=== PATIENT | female | born 1980 | race Caucasian/White ===

== ENCOUNTER 2018-09-12 21:39 | Inpatient (IN) | payer BC ==
[2018-09-12] MEDS: SOD CHLORIDE 0.9% 1,000 ML IV (22:39)
[2018-09-12] MEDS ORDERED: NACL 0.9% 3 ML SYG IV (23:00)
[2018-09-12] MEDS ORDERED: ONDANSETRON 4 MG INJ IV (23:00)
[2018-09-12] MEDS ORDERED: ACETAMINOPHEN 325 MG TAB PO (23:00)
[2018-09-12 23:26] LABS: WHITE BLOOD COUNT 1.1 10^3/ul (4.8-10.8)
[2018-09-12 23:26] LABS: ABNORMAL IP MESSAGE 1; HEMATOCRIT 20.4 % (37.0-47.0); MEAN CORPUSCULAR HEMOGLOBIN 30.1 pg (29.0-33.0); MEAN CORPUSCULAR HGB CONC 32.4 g/dl (32.0-37.0); MEAN CORPUSCULAR VOLUME 93.2 fl (82.0-101.0); RED BLOOD COUNT 2.19 10^6/ul (4.20-5.40); RED CELL DISTRIBUTION WIDTH 17.7 % (11.5-14.5)
[2018-09-12 23:28] LABS: POSITIVE DIFF @See below
[2018-09-12 23:31] LABS: ADD MAN DIFF? YES; HEMOGLOBIN 6.6 g/dl (12.0-16.0); PLATELET COUNT 11 10^3/UL (140-415)
[2018-09-12] MEDS: SOD CHLORIDE 0.9% 250 ML IV* (23:56)
[2018-09-13 00:06] LABS: ACANTHOCYTES 1+ (0-0); BURR CELLS 1+ (0-0); ECHINOCYTOSIS 1+ (0-0); OVALOCYTES 1+ (0-0); PLATELET ESTIMATE SIG DECREASED; TARGET CELLS 1+ (0-0)
[2018-09-13 00:56] LABS: ANISOCYTOSIS 2+ (0-0); BAND NEUTROPHILS % (M) 4 % (0-4); BASOPHILS % (M) 2 % (0-2); EOSINOPHILS % (M) 1 % (0-7); GIANT THROMBO% (M) 4 % (0-0); LYMPHOCYTES #M 0.2 10^3/ul (0.8-2.9); LYMPHOCYTES % (M) 21 % (15-51); POIKILOCYTOSIS 3+ (0-0); POLYCHROMASIA 3+ (0-0); REACTIVE LYMPHOCYTES% (M) 4 % (0-0); SEG NEUT #M 0.7 10^3/ul (1.6-7.5); SEGMENTED NEUTROPHILS (M) % 68 % (39-77); SMUDGE%M 134 % (0-0)
[2018-09-13] MEDS ORDERED: ONDANSETRON 4 MG INJ IV (03:00)
[2018-09-13] MEDS: LORAZEPAM 2 MG INJ IV ×4 (03:01→21:31)
[2018-09-13 03:07] LABS: ALANINE AMINOTRANSFERASE 49 IU/L (13-69); ALBUMIN 2.5 g/dl (3.3-4.9); ALBUMIN/GLOBULIN RATIO 0.71; ALKALINE PHOSPHATASE 111 IU/L (42-121); ANION GAP 7 (5-13); ASPARTATE AMINO TRANSFERASE 183 IU/L (15-46); BILIRUBIN,INDIRECT 2.7 mg/dl (0-1.1); BILIRUBIN,TOTAL 3.6 mg/dl (0.2-1.3); BLOOD UREA NITROGEN 7 mg/dl (7-20); CALCIUM 7.5 mg/dl (8.4-10.2); CARBON DIOXIDE 25 mmol/L (21-31); CHLORIDE 106 mmol/L (97-110); CREATININE 0.57 mg/dl (0.44-1.00); Estimated GFR > 60 mL/min (>60); GLUCOSE 64 mg/dl (70-220); POTASSIUM 3.3 mmol/L (3.5-5.1); SODIUM 138 mmol/L (135-144)
[2018-09-13 03:09] LABS: PROTIME 23.6 Sec (11.9-14.9); PT RATIO 1.8
[2018-09-13 03:10] LABS: PARTIAL THROMBOPLASTIN TIME 35.9 Sec (23.0-35.0)
[2018-09-13] MEDS: PROPRANOLOL 1 MG INJ IV (03:30)
[2018-09-13] MEDS: OCTREOTIDE 1 MG in DEXTROSE 5% 95 ML IV ×2 (03:30→19:00)
[2018-09-13] MEDS: PANTOPRAZOLE IV 80 MG in SOD CHLORIDE 0.9% 100 ML IV ×3 (03:31→19:00)
[2018-09-13 03:54] LABS: AMYLASE 39 U/L (11-123)
[2018-09-13 03:55] LABS: LIPASE < 10 U/L (23-300)
[2018-09-13 03:55] LABS: LACTATE DEHYDROGENASE 1039 IU/L (313-618)
[2018-09-13 03:56] LABS: ETHANOL < 10.0 mg/dl (0-0)
[2018-09-13] MEDS: CHLORDIAZEPOXIDE 25 MG CAP PO ×3 (04:43→21:30)
[2018-09-13] MEDS: D5W-0.45 NACL + KCL 20 MEQ 1,000 ML IV (04:44)
[2018-09-13] MEDS: PHYTONADIONE 10 MG in DEXTROSE 5% 50 ML IVPB (05:24)
[2018-09-13] MEDS ORDERED: predniSOLONE (3 MG/ML PO SYG) PO (09:00)
[2018-09-13 09:26] LABS: ABNORMAL IP MESSAGE 1; HEMATOCRIT 20.7 % (37.0-47.0); MEAN CORPUSCULAR HEMOGLOBIN 30.3 pg (29.0-33.0); MEAN CORPUSCULAR HGB CONC 32.4 g/dl (32.0-37.0); MEAN CORPUSCULAR VOLUME 93.7 fl (82.0-101.0); RED BLOOD COUNT 2.21 10^6/ul (4.20-5.40); RED CELL DISTRIBUTION WIDTH 17.8 % (11.5-14.5); RETICULOCYTE COUNT % 3.6 % (0.5-1.5); RETICULOCYTE RBC 2.21
[2018-09-13 09:26] LABS: WHITE BLOOD COUNT 0.6 10^3/ul (4.8-10.8)
[2018-09-13 09:40] LABS: INR 2.15; PROTIME 24.1 Sec (11.9-14.9); PT RATIO 1.9
[2018-09-13 09:41] LABS: PARTIAL THROMBOPLASTIN TIME 43.3 Sec (23.0-35.0)
[2018-09-13 09:42] LABS: ALANINE AMINOTRANSFERASE 50 IU/L (13-69); ALBUMIN 2.3 g/dl (3.3-4.9); ALBUMIN/GLOBULIN RATIO 0.63; ALKALINE PHOSPHATASE 104 IU/L (42-121); ANION GAP 8 (5-13); ASPARTATE AMINO TRANSFERASE 146 IU/L (15-46); BILIRUBIN,INDIRECT 2.6 mg/dl (0-1.1); BILIRUBIN,TOTAL 3.7 mg/dl (0.2-1.3); BLOOD UREA NITROGEN 7 mg/dl (7-20); CALCIUM 7.3 mg/dl (8.4-10.2); CARBON DIOXIDE 27 mmol/L (21-31); CHLORIDE 103 mmol/L (97-110); CHOLESTEROL 131 mg/dl (100-200); CREATININE 0.61 mg/dl (0.44-1.00); Estimated GFR > 60 mL/min (>60); GLUCOSE 80 mg/dl (70-220); HDL CHOLESTEROL 32 mg/dl (34-82); LDL CHOLESTEROL,CALCULATED 84 mg/dl; MAGNESIUM 1.4 mg/dl (1.7-2.5); POTASSIUM 3.3 mmol/L (3.5-5.1); SODIUM 138 mmol/L (135-144); TOTAL PROTEIN 5.9 g/dl (6.1-8.1); TRIGLYCERIDES 73 mg/dl (0-149)
[2018-09-13 09:43] LABS: HEMOGLOBIN A1C 5.4 % (0-5.9)
[2018-09-13 09:47] LABS: HEMOGLOBIN 6.7 g/dl (12.0-16.0); PLATELET COUNT 11 10^3/UL (140-415); POSITIVE DIFF @See below
[2018-09-13 09:48] LABS: ADD MAN DIFF? YES
[2018-09-13 10:11] LABS: WHITE BLOOD COUNT 0.7 10^3/ul (4.8-10.8)
[2018-09-13 10:11] LABS: ABNORMAL IP MESSAGE 1; MEAN CORPUSCULAR HEMOGLOBIN 30.2 pg (29.0-33.0); MEAN CORPUSCULAR HGB CONC 32.4 g/dl (32.0-37.0); MEAN CORPUSCULAR VOLUME 93.3 fl (82.0-101.0); RED BLOOD COUNT 2.25 10^6/ul (4.20-5.40)
[2018-09-13 10:14] LABS: THYROID STIMULATING HORMONE 0.476 MIU/L (0.465-4.680)
[2018-09-13 10:24] LABS: ADD MAN DIFF? YES; HEMOGLOBIN 6.8 g/dl (12.0-16.0); PLATELET COUNT 9 10^3/UL (140-415); POSITIVE DIFF @See below
[2018-09-13 10:51] LABS: ANISOCYTOSIS 1+ (0-0); BAND NEUTROPHILS % (M) 4 % (0-4); BASOPHILS % (M) 1 % (0-2); EOSINOPHILS % (M) 5 % (0-7); GIANT THROMBO% (M) 2 % (0-0); HYPOCHROMASIA 1+ (0-0); LYMPHOCYTES #M 0.1 10^3/ul (0.8-2.9); LYMPHOCYTES % (M) 29 % (15-51); MONOCYTES % (M) 1 % (0-11); OVALOCYTES 1+ (0-0); PLATELET ESTIMATE SIG DECREASED; POIKILOCYTOSIS 1+ (0-0); POLYCHROMASIA 3+ (0-0); SCHISTOCYTES 1+ (0-0); SEG NEUT #M 0.4 10^3/ul (1.6-7.5); SEGMENTED NEUTROPHILS (M) % 60 % (39-77); SMUDGE%M 6 % (0-0); TARGET CELLS 1+ (0-0)
[2018-09-13] MEDS: SOD CHLORIDE 0.9% 250 ML IV* (11:01)
[2018-09-13] MEDS: POTASSIUM CHLORIDE (SR) 20 MEQ TAB PO (12:12)
[2018-09-13] MEDS: FUROSEMIDE 40 MG TAB PO (12:12)
[2018-09-13] MEDS: SPIRONOLACTONE 50 MG TAB PO (12:12)
[2018-09-13] MEDS: LACTULOSE 30ML CUP PO ×2 (12:12→21:29)
[2018-09-13] MEDS: CEFTRIAXONE 1 GM/50 ML (PMX) 50 ML IVPB (12:12)
[2018-09-13] MEDS: morphine 2 MG INJ IV ×2 (12:13→17:17)
[2018-09-13] MEDS: METOCLOPRAMIDE 10 MG INJ IV ×2 (12:13→17:17)
[2018-09-13 12:24] LABS: ANISOCYTOSIS 1+ (0-0); BAND NEUTROPHILS % (M) 8 % (0-4); BASOPHILS % (M) 1 % (0-2); BURR CELLS 1+ (0-0); EOSINOPHILS % (M) 2 % (0-7); ERYTHROBLAST% (NRBC) (M) 1 % (0-0); GIANT THROMBO% (M) 1 % (0-0); HYPOCHROMASIA 2+ (0-0); LYMPHOCYTES #M 0.1 10^3/ul (0.8-2.9); LYMPHOCYTES % (M) 18 % (15-51); MONOCYTES % (M) 1 % (0-11); OVALOCYTES 1+ (0-0); PLATELET ESTIMATE SIG DECREASED; POIKILOCYTOSIS 2+ (0-0); POLYCHROMASIA 3+ (0-0); SCHISTOCYTES 1+ (0-0); SEG NEUT #M 0.5 10^3/ul (1.6-7.5); SEGMENTED NEUTROPHILS (M) % 70 % (39-77); SMUDGE%M 4 % (0-0); TARGET CELLS 1+ (0-0)
[2018-09-13] MEDS: NADOLOL 40 MG TAB PO (13:23)
[2018-09-13] MEDS: PHYTONADIONE 10 MG/ML INJ SC (14:41)
[2018-09-13 17:12] LABS: FLUID LD 228 U/L; FLUID TOTAL PROTEIN < 2.0 g/dl; FLUID TYPE PARACENTESIS FLUID
[2018-09-13 18:06] LABS: WHITE BLOOD COUNT 1.2 10^3/ul (4.8-10.8)
[2018-09-13 18:06] LABS: ABNORMAL IP MESSAGE 1; HEMATOCRIT 24.6 % (37.0-47.0); HEMOGLOBIN 8.1 g/dl (12.0-16.0); MEAN CORPUSCULAR HEMOGLOBIN 30.7 pg (29.0-33.0); MEAN CORPUSCULAR HGB CONC 32.9 g/dl (32.0-37.0); MEAN CORPUSCULAR VOLUME 93.2 fl (82.0-101.0); RED BLOOD COUNT 2.64 10^6/ul (4.20-5.40); RED CELL DISTRIBUTION WIDTH 17.7 % (11.5-14.5)
[2018-09-13 18:17] LABS: PLATELET COUNT 32 10^3/UL (140-415); POSITIVE DIFF @See below
[2018-09-13 18:19] LABS: ADD MAN DIFF? YES
[2018-09-13 18:27] LABS: AMMONIA 44 umol/l (9-30)
[2018-09-13 18:44] LABS: ADD UMIC NO; UR ASCORBIC ACID NEGATIVE (NEGATIVE); UR BILIRUBIN (Dip) NEGATIVE (NEGATIVE); UR BLOOD (Dip) NEGATIVE (NEGATIVE); UR CLARITY CLEAR (CLEAR); UR COLOR YELLOW (YELLOW); UR GLUCOSE (Dip) NEGATIVE (NEGATIVE); UR KETONES (Dip) NEGATIVE (NEGATIVE); UR LEUKOCYTE ESTERASE (Dip) NEGATIVE Leu/ul (NEGATIVE); UR NITRITE (Dip) NEGATIVE (NEGATIVE); UR SPECIFIC GRAVITY (Dip) 1.009 (1.003-1.030); UR TOTAL PROTEIN (Dip) NEGATIVE (NEGATIVE); UR UROBILINOGEN (Dip) 1+ mg/dL (NEGATIVE)
[2018-09-13 19:46] LABS: ACANTHOCYTES 1+ (0-0); ANISOCYTOSIS 1+ (0-0); BAND NEUTROPHILS % (M) 2 % (0-4); BASOPHILS % (M) 2 % (0-2); EOSINOPHILS % (M) 2 % (0-7); GIANT THROMBO% (M) 2 % (0-0); HYPOCHROMASIA 1+ (0-0); LYMPHOCYTES #M 0.2 10^3/ul (0.8-2.9); LYMPHOCYTES % (M) 17 % (15-51); METAMYELOCYTES %M 1 % (0-0); MICROCYTOSIS 1+ (0-0); MONOCYTES % (M) 3 % (0-11); PLATELET ESTIMATE SIG DECREASED; POIKILOCYTOSIS 2+ (0-0); POLYCHROMASIA 2+ (0-0); SCHISTOCYTES 1+ (0-0); SEG NEUT #M 0.9 10^3/ul (1.6-7.5); SEGMENTED NEUTROPHILS (M) % 73 % (39-77); SPHEROCYTES 1+ (0-0)
[2018-09-13 19:52] LABS: FLD MN% 92.7 %; FLD PMN% 7.3 %; FLD RBC 3000 /uL; FLD WBC 55 /cmm
[2018-09-13 19:54] LABS: FLD CLARITY CLEAR; FLD COLOR YELLOW
[2018-09-13 19:54] LABS: FLD TYPE PARACENTHESIS
[2018-09-13 20:30] LABS: POST-TRANSFUSION BILIRUBIN 2.5 mg/dl
[2018-09-13 20:30] LABS: PRETRANSFUSION BILIRUBIN 2.3 mg/dl
[2018-09-13] MEDS: ACETAMINOPHEN 325 MG TAB PO (21:31)
[2018-09-13] MEDS: PENTOXIFYLLINE (SR) 400 MG TAB PO (21:31)
[2018-09-14] MEDS: METOCLOPRAMIDE 10 MG INJ IV ×5 (00:15→23:29)
[2018-09-14] MEDS: morphine LIQ (10 MG/5 ML) CUP PO ×2 (01:57→23:29)
[2018-09-14 01:59] LABS: IMMEDIATE SPIN CROSSMATCH 1
[2018-09-14] MEDS: LORAZEPAM 2 MG INJ IV (03:56)
[2018-09-14 04:59] LABS: IMMEDIATE SPIN CROSSMATCH 1 3
[2018-09-14] MEDS: PANTOPRAZOLE IV 80 MG in SOD CHLORIDE 0.9% 100 ML IV ×3 (05:00→23:35)
[2018-09-14] MEDS: DIPHENHYDRAMINE 50 MG INJ IV (05:50)
[2018-09-14] MEDS ORDERED: PROPOFOL 200 MG INJ (07:00)
[2018-09-14 07:25] LABS: INR 1.91; PT RATIO 1.7
[2018-09-14 07:26] LABS: PARTIAL THROMBOPLASTIN TIME 38.8 Sec (23.0-35.0)
[2018-09-14 07:36] LABS: ALANINE AMINOTRANSFERASE 36 IU/L (13-69); ALBUMIN 3.2 g/dl (3.3-4.9); ALBUMIN/GLOBULIN RATIO 0.78; ALKALINE PHOSPHATASE 120 IU/L (42-121); ANION GAP 8 (5-13); ASPARTATE AMINO TRANSFERASE 145 IU/L (15-46); BILIRUBIN,INDIRECT 2.9 mg/dl (0-1.1); BILIRUBIN,TOTAL 4.4 mg/dl (0.2-1.3); BLOOD UREA NITROGEN 5 mg/dl (7-20); CALCIUM 7.9 mg/dl (8.4-10.2); CARBON DIOXIDE 27 mmol/L (21-31); CHLORIDE 103 mmol/L (97-110); CREATININE 0.64 mg/dl (0.44-1.00); Estimated GFR > 60 mL/min (>60); GLUCOSE 81 mg/dl (70-220); POTASSIUM 3.2 mmol/L (3.5-5.1); SODIUM 138 mmol/L (135-144); TOTAL PROTEIN 7.3 g/dl (6.1-8.1)
[2018-09-14] MEDS: LACTULOSE 30ML CUP PO ×2 (08:57→20:33)
[2018-09-14] MEDS: MULTIVITAMINS 10 ML, THIAMINE 100 MG, FOLIC ACID 1 MG in SOD CHLORIDE 0.9% 1,000 ML IVPB (08:57)
[2018-09-14] MEDS: FUROSEMIDE 40 MG TAB PO (08:58)
[2018-09-14] MEDS: SPIRONOLACTONE 50 MG TAB PO (08:58)
[2018-09-14] MEDS: PENTOXIFYLLINE (SR) 400 MG TAB PO ×3 (08:59→20:33)
[2018-09-14] MEDS: NADOLOL 40 MG TAB PO (09:00)
[2018-09-14] MEDS: PHYTONADIONE 10 MG/ML INJ SC (09:01)
[2018-09-14] MEDS: CHLORDIAZEPOXIDE 25 MG CAP PO ×4 (09:38→20:33)
[2018-09-14] MEDS: CEFTRIAXONE 1 GM/50 ML (PMX) 50 ML IVPB (11:08)
[2018-09-14] MEDS: POTASSIUM CHLORIDE (SR) 20 MEQ TAB PO (12:26)
[2018-09-14] MEDS: OCTREOTIDE 1 MG in DEXTROSE 5% 95 ML IV (15:00)
[2018-09-14] MEDS ORDERED: LIDOCAINE 100 MG SYRINGE (16:21)
[2018-09-14] MEDS ORDERED: FENTAnyl 50 MCG/ML VIAL (16:21)
[2018-09-14] MEDS ORDERED: PROPOFOL 40 ML (16:21)
[2018-09-14] MEDS ORDERED: HYDROmorphONE 1 MG/5 ML IV SYRINGE IV ×3 (16:30)
[2018-09-14] MEDS ORDERED: TRIMETHOBENZAMIDE 100 MG/ML VIAL IM (16:30)
[2018-09-14] MEDS ORDERED: MEPERIDINE 25 MG INJ IV (16:30)
[2018-09-14] MEDS ORDERED: IPRATROPIUM (NEB) 0.5 MG/2.5 ML AMP HHN (16:30)
[2018-09-14] MEDS ORDERED: LABETALOL HCL 20MG INJ IV (16:30)
[2018-09-14] MEDS ORDERED: hydrALAzine 20 MG INJ IV (16:30)
[2018-09-14] MEDS ORDERED: DIPHENHYDRAMINE 50 MG INJ IV (16:30)
[2018-09-14] MEDS ORDERED: MIDAZOLAM 1 MG/ML 2 ML INJ IV (16:30)
[2018-09-14] MEDS ORDERED: FENTAnyl 50 MCG/ML VIAL IV ×3 (16:30)
[2018-09-14] MEDS ORDERED: EPHEDrine SULFATE 50 MG/5 ML SYG IV (16:30)
[2018-09-14] MEDS ORDERED: ALBUTEROL 0.083% (NEB) 2.5 MG/3 ML AMP HHN (16:30)
[2018-09-14] MEDS ORDERED: OXYCODONE/ACETAMINOPHEN (5/325) TAB PO ×2 (16:30)
[2018-09-14] MEDS: ACETAMINOPHEN 325 MG TAB PO (18:45)
[2018-09-15] MEDS: DIPHENHYDRAMINE 50 MG CAP PO (03:54)
[2018-09-15] MEDS: METOCLOPRAMIDE 10 MG INJ IV ×4 (05:38→18:04)
[2018-09-15] MEDS: LORAZEPAM 2 MG INJ IV ×2 (05:56→15:59)
[2018-09-15 07:19] LABS: INR 2.14; PT RATIO 1.9
[2018-09-15 07:20] LABS: PARTIAL THROMBOPLASTIN TIME 40.5 Sec (23.0-35.0)
[2018-09-15 07:24] LABS: ALANINE AMINOTRANSFERASE 37 IU/L (13-69); ALBUMIN 2.8 g/dl (3.3-4.9); ALBUMIN/GLOBULIN RATIO 0.73; ALKALINE PHOSPHATASE 111 IU/L (42-121); ANION GAP 10 (5-13); ASPARTATE AMINO TRANSFERASE 87 IU/L (15-46); BILIRUBIN,INDIRECT 2.8 mg/dl (0-1.1); BILIRUBIN,TOTAL 3.9 mg/dl (0.2-1.3); BLOOD UREA NITROGEN 5 mg/dl (7-20); CALCIUM 7.6 mg/dl (8.4-10.2); CARBON DIOXIDE 27 mmol/L (21-31); CHLORIDE 101 mmol/L (97-110); CREATININE 0.65 mg/dl (0.44-1.00); Estimated GFR > 60 mL/min (>60); GLUCOSE 83 mg/dl (70-220); POTASSIUM 3.3 mmol/L (3.5-5.1); SODIUM 138 mmol/L (135-144); TOTAL PROTEIN 6.6 g/dl (6.1-8.1)
[2018-09-15] MEDS: MULTIVITAMINS 10 ML, THIAMINE 100 MG, FOLIC ACID 1 MG in SOD CHLORIDE 0.9% 1,000 ML IVPB (08:25)
[2018-09-15] MEDS: PHYTONADIONE 10 MG/ML INJ SC (08:26)
[2018-09-15] MEDS: PENTOXIFYLLINE (SR) 400 MG TAB PO ×2 (08:27→12:19)
[2018-09-15] MEDS: SPIRONOLACTONE 50 MG TAB PO (08:28)
[2018-09-15] MEDS: FUROSEMIDE 40 MG TAB PO (08:28)
[2018-09-15] MEDS: LACTULOSE 30ML CUP PO (08:28)
[2018-09-15] MEDS: OCTREOTIDE 1 MG in DEXTROSE 5% 95 ML IV (08:31)
[2018-09-15] MEDS: CHLORDIAZEPOXIDE 25 MG CAP PO ×2 (08:31→12:19)
[2018-09-15 10:19] LABS: ADD MAN DIFF? NO
[2018-09-15 10:27] LABS: WHITE BLOOD COUNT 1.7 10^3/ul (4.8-10.8)
[2018-09-15 10:27] LABS: IRON 34 ug/dl (35-150)
[2018-09-15 10:28] LABS: ABNORMAL IP MESSAGE 1; BASOPHILS % 1.2 % (0.0-2.0); EOSINOPHILS % 2.4 % (0.0-7.0); HEMOGLOBIN 9.5 g/dl (12.0-16.0); LYMPHOCYTES # 0.6 10^3/ul (0.8-2.9); LYMPHOCYTES % 35.7 % (15.0-51.0); MEAN CORPUSCULAR HEMOGLOBIN 30.6 pg (29.0-33.0); MEAN CORPUSCULAR HGB CONC 32.8 g/dl (32.0-37.0); MEAN CORPUSCULAR VOLUME 93.5 fl (82.0-101.0); MONOCYTE # 0.2 10^3/ul (0.3-0.9); MONOCYTES % 13.7 % (0.0-11.0); NEUTROPHIL # 0.8 10^3/ul (1.6-7.5); RED CELL DISTRIBUTION WIDTH 17.4 % (11.5-14.5)
[2018-09-15 10:31] LABS: POSITIVE DIFF @See below
[2018-09-15 10:33] LABS: PLATELET COUNT 19 10^3/UL (140-415)
[2018-09-15 10:36] LABS: % IRON SATURATION 11 % SAT (22-52); TOTAL IRON BINDING CAPACITY 296 ug/dl (241-421)
[2018-09-15] MEDS: POTASSIUM CHLORIDE (SR) 20 MEQ TAB PO (11:19)
[2018-09-15] MEDS: PANTOPRAZOLE IV 80 MG in SOD CHLORIDE 0.9% 100 ML IV (11:19)
[2018-09-15] MEDS: CEFTRIAXONE 1 GM/50 ML (PMX) 50 ML IVPB (11:20)
[2018-09-15] MEDS: NADOLOL 40 MG TAB PO (12:19)
[2018-09-15 12:24] LABS: ANISOCYTOSIS 1+ (0-0); BAND NEUTROPHILS % (M) 1 % (0-4); BURR CELLS 2+ (0-0); EOSINOPHILS % (M) 3 % (0-7); ERYTHROBLAST% (NRBC) (M) 1 % (0-0); LYMPHOCYTES #M 0.9 10^3/ul (0.8-2.9); LYMPHOCYTES % (M) 55 % (15-51); MONOCYTES % (M) 4 % (0-11); PLATELET ESTIMATE SIG DECREASED; POIKILOCYTOSIS 2+ (0-0); POLYCHROMASIA 1+ (0-0); SEG NEUT #M 0.6 10^3/ul (1.6-7.5); SEGMENTED NEUTROPHILS (M) % 37 % (39-77); SMUDGE%M 13 % (0-0)
[2018-09-15 13:19] LABS: HEMATOCRIT 27.4 % (37.0-47.0); HEMOGLOBIN 8.9 g/dl (12.0-16.0)
[2018-09-15 14:18] LABS: TYPE AND SCREEN 1
[2018-09-15] MEDS: SOD CHLORIDE 0.9% 250 ML IV* (14:20)
== END 2018-09-15 21:50 | disposition left against medical advice (07) | DRG 378 ==
LOC: TEL 21:39
PROVIDERS: Internal Medicine; Pediatrics
PROC: 30233K1 Transfusion of Nonautologous Frozen Plasma into Peripheral Vein, Percutaneous Approach (ICD-10-PCS; principal; 2018-09-14 15:40)
PROC: 30233K1 Transfusion of Nonautologous Frozen Plasma into Peripheral Vein, Percutaneous Approach (ICD-10-PCS; 2018-09-14 15:40)
PROC: 30233R1 Transfusion of Nonautologous Platelets into Peripheral Vein, Percutaneous Approach (ICD-10-PCS; 2018-09-14 15:40)
PROC: 30233R1 Transfusion of Nonautologous Platelets into Peripheral Vein, Percutaneous Approach (ICD-10-PCS; 2018-09-14 15:40)
PROC: 30233R1 Transfusion of Nonautologous Platelets into Peripheral Vein, Percutaneous Approach (ICD-10-PCS; 2018-09-14 15:40)
PROC: 30233N1 Transfusion of Nonautologous Red Blood Cells into Peripheral Vein, Percutaneous Approach (ICD-10-PCS; 2018-09-14 15:40)
PROC: 30233N1 Transfusion of Nonautologous Red Blood Cells into Peripheral Vein, Percutaneous Approach (ICD-10-PCS; 2018-09-14 15:40)
PROC: 0DB68ZX Excision of Stomach, Via Natural or Artificial Opening Endoscopic, Diagnostic (ICD-10-PCS; 2018-09-14 15:40)
PROC: 0W9G30Z Drainage of Peritoneal Cavity with Drainage Device, Percutaneous Approach (ICD-10-PCS; 2018-09-14 15:40)
DX: K92.0 Hematemesis (principal); D62 Acute posthemorrhagic anemia; K76.6 Portal hypertension; D61.818 Other pancytopenia; D69.59 Other secondary thrombocytopenia; K70.31 Alcoholic cirrhosis of liver with ascites; K72.90 Hepatic failure, unspecified without coma; D75.89 Other specified diseases of blood and blood-forming organs; F10.10 Alcohol abuse, uncomplicated; Y90.8 Blood alcohol level of 240 mg/100 ml or more; K31.89 Other diseases of stomach and duodenum; Z91.19 Patient's noncompliance with other medical treatment and regimen
CPT/HCPCS: 36430; 71045; 76705; 78226; 80053; 80061; 80307; 81003; 82140; 82150; 83036; 83540; 83615; 83690; 83735; 84157; 84443; 85014; 85018; 85025; 85045; 85610; 85730; 86078; 86850; 86870; 86900; 86901; 86920; 87070; 87086; 87102; 87116; 88104; 88305; 88312; 89051; J1800

== ENCOUNTER 2018-09-21 21:20 | Inpatient (IN) | payer BC ==
[2018-09-21] MEDS ORDERED: HALOPERIDOL 5 MG INJ (21:55)
[2018-09-21] MEDS: HALOPERIDOL 5 MG INJ IM ×2 (22:47→23:23)
[2018-09-21] MEDS: LORAZEPAM 2 MG INJ IV (23:19)
[2018-09-22] MEDS ORDERED: NACL 0.9% 3 ML SYG IV
[2018-09-22] MEDS ORDERED: ALBUTEROL/IPRATROPIUM (NEB) 3 ML AMP HHN
[2018-09-22] MEDS ORDERED: LORAZEPAM 2 MG INJ IV
[2018-09-22 00:46] LABS: ADD MAN DIFF? NO
[2018-09-22 00:47] LABS: WHITE BLOOD COUNT 4.5 10^3/ul (4.8-10.8)
[2018-09-22 00:47] LABS: ABNORMAL IP MESSAGE 1; BASOPHILS % 0.7 % (0.0-2.0); EOSINOPHILS % 0.7 % (0.0-7.0); HEMATOCRIT 21.3 % (37.0-47.0); LYMPHOCYTES # 0.8 10^3/ul (0.8-2.9); LYMPHOCYTES % 16.7 % (15.0-51.0); MEAN CORPUSCULAR HEMOGLOBIN 29.5 pg (29.0-33.0); MEAN CORPUSCULAR VOLUME 95.1 fl (82.0-101.0); MEAN PLATELET VOLUME 12.5 fl (7.4-10.4); MONOCYTE # 0.6 10^3/ul (0.3-0.9); MONOCYTES % 12.7 % (0.0-11.0); NEUTROPHIL # 3.1 10^3/ul (1.6-7.5); NEUTROPHILS % 68.3 % (39.0-77.0); PLATELET COUNT 52 10^3/UL (140-415); RED BLOOD COUNT 2.24 10^6/ul (4.20-5.40); RED CELL DISTRIBUTION WIDTH 18.2 % (11.5-14.5)
[2018-09-22 00:55] LABS: HEMOGLOBIN 6.6 g/dl (12.0-16.0); POSITIVE DIFF @See below
[2018-09-22] MEDS: DEXTROSE 5%-0.45% NACL 1,000 ML IV (00:56)
[2018-09-22 01:13] LABS: ALANINE AMINOTRANSFERASE 35 IU/L (13-69); ALBUMIN 2.7 g/dl (3.3-4.9); ALBUMIN/GLOBULIN RATIO 0.75; ALKALINE PHOSPHATASE 93 IU/L (42-121); ANION GAP 12 (5-13); ASPARTATE AMINO TRANSFERASE 90 IU/L (15-46); BILIRUBIN,TOTAL 3.6 mg/dl (0.2-1.3); BLOOD UREA NITROGEN 6 mg/dl (7-20); CALCIUM 8.1 mg/dl (8.4-10.2); CARBON DIOXIDE 17 mmol/L (21-31); CHLORIDE 104 mmol/L (97-110); CREATININE 0.49 mg/dl (0.44-1.00); Estimated GFR > 60 mL/min (>60); GLUCOSE 144 mg/dl (70-220); SODIUM 133 mmol/L (135-144); TOTAL PROTEIN 6.3 g/dl (6.1-8.1)
[2018-09-22 01:16] LABS: POTASSIUM 2.8 mmol/L (3.5-5.1)
[2018-09-22 01:17] LABS: AMMONIA 21 umol/l (9-30)
[2018-09-22] MEDS ORDERED: POTASSIUM CHLORIDE 50 ML IVPB (01:30)
[2018-09-22] MEDS: POTASSIUM CHLORIDE 100 ML IVPB ×3 (02:04→06:09)
[2018-09-22] MEDS ORDERED: PANTOPRAZOLE 40 MG INJ IV (03:00)
[2018-09-22] MEDS: FAMOTIDINE 20 MG INJ IV (05:29)
[2018-09-22 06:51] LABS: MAGNESIUM 1.6 mg/dl (1.7-2.5)
[2018-09-22 06:52] LABS: ETHANOL < 10.0 mg/dl (0-0)
[2018-09-22] MEDS: MULTIVITAMINS 10 ML, THIAMINE 100 MG, FOLIC ACID 1 MG in SOD CHLORIDE 0.9% 1,000 ML IVPB (10:40)
[2018-09-22] MEDS ORDERED: MAGNESIUM SULFATE 2 GM/50 ML 50 ML IVPB (13:00)
[2018-09-22] MEDS: POTASSIUM CHLORIDE (SR) 20 MEQ TAB PO (13:10)
== END 2018-09-22 13:15 | disposition left against medical advice (07) | DRG 433 ==
LOC: 6WM 21:20
DX: K70.40 Alcoholic hepatic failure without coma (principal); D61.818 Other pancytopenia; D62 Acute posthemorrhagic anemia; E83.42 Hypomagnesemia; F10.10 Alcohol abuse, uncomplicated; Y90.0 Blood alcohol level of less than 20 mg/100 ml; E87.6 Hypokalemia; K70.31 Alcoholic cirrhosis of liver with ascites; Z53.21 Procedure and treatment not carried out due to patient leaving prior to being seen by health care provider
CPT/HCPCS: 80053; 80307; 82140; 83735; 85025; 86850; 86870; 86900; 86901; 86920; 87081; 92610

== ENCOUNTER 2018-10-04 11:59 | Emergency (ER) | payer BC ==
[2018-10-04] MEDS: morphine 4 MG/ML VIAL IM (13:18)
[2018-10-04] MEDS: LIDOCAINE 1% (MPF) 5 ML VIAL (16:22)
== END 2018-10-04 17:03 | disposition home or self-care (01) ==
LOC: E/R 11:59
DX: K70.31 Alcoholic cirrhosis of liver with ascites (principal)
CPT/HCPCS: 96372; 99285-25

== ENCOUNTER 2018-10-09 11:42 | Emergency (ER) | payer BC ==
[2018-10-09] MEDS ORDERED: morphine 4 MG/ML VIAL IV (12:26)
[2018-10-09] MEDS: morphine 4 MG/ML VIAL IM (12:32)
[2018-10-09] MEDS: LIDOCAINE 1% (MPF) 5 ML VIAL (14:41)
== END 2018-10-09 14:47 | disposition home or self-care (01) ==
LOC: E/R 11:42
DX: K70.31 Alcoholic cirrhosis of liver with ascites (principal); Z98.890 Other specified postprocedural states
CPT/HCPCS: 96372; 99285-25

== ENCOUNTER 2018-10-11 14:20 | Emergency (ER) | payer OTHER, BC ==
[2018-10-11] MEDS: LIDOCAINE 1% (MPF) 5 ML VIAL (18:56)
[2018-10-11 19:09] LABS: ADD MAN DIFF? NO
[2018-10-11 19:11] LABS: ABNORMAL IP MESSAGE 1; BASOPHILS % 0.5 % (0.0-2.0); EOSINOPHILS % 0.5 % (0.0-7.0); HEMATOCRIT 26.4 % (37.0-47.0); HEMOGLOBIN 8.1 g/dl (12.0-16.0); LYMPHOCYTES # 1.5 10^3/ul (0.8-2.9); LYMPHOCYTES % 19.1 % (15.0-51.0); MEAN CORPUSCULAR HGB CONC 30.7 g/dl (32.0-37.0); MEAN CORPUSCULAR VOLUME 101.1 fl (82.0-101.0); MEAN PLATELET VOLUME 12.4 fl (7.4-10.4); MONOCYTES % 12.6 % (0.0-11.0); NEUTROPHIL # 5.1 10^3/ul (1.6-7.5); NEUTROPHILS % 66.7 % (39.0-77.0); PLATELET COUNT 108 10^3/UL (140-415); RED BLOOD COUNT 2.61 10^6/ul (4.20-5.40); RED CELL DISTRIBUTION WIDTH 22.8 % (11.5-14.5)
[2018-10-11 19:11] LABS: WHITE BLOOD COUNT 7.7 10^3/ul (4.8-10.8)
[2018-10-11 19:12] LABS: POSITIVE DIFF @See below
[2018-10-11 19:38] LABS: ANION GAP 12 (5-13); BLOOD UREA NITROGEN 13 mg/dl (7-20); CALCIUM 8.5 mg/dl (8.4-10.2); CARBON DIOXIDE 25 mmol/L (21-31); CHLORIDE 102 mmol/L (97-110); CREATININE 0.62 mg/dl (0.44-1.00); Estimated GFR > 60 mL/min (>60); GLUCOSE 111 mg/dl (70-220); POTASSIUM 4.5 mmol/L (3.5-5.1); SODIUM 139 mmol/L (135-144)
== END 2018-10-11 19:52 | disposition home or self-care (01) ==
LOC: E/R 14:20
DX: K70.31 Alcoholic cirrhosis of liver with ascites (principal)
CPT/HCPCS: 80048; 85025; 86850; 86870; 86900; 86901; 99285-25

== ENCOUNTER 2018-10-22 11:58 | Emergency (ER) | payer OTHER ==
[2018-10-22] MEDS: PANTOPRAZOLE IV 80 MG in SOD CHLORIDE 0.9% 100 ML IV (12:42)
[2018-10-22] MEDS: OCTREOTIDE 50 MCG in SOD CHLORIDE 0.9% 25 ML IVPB (12:42)
[2018-10-22] MEDS: PANTOPRAZOLE IV 80 MG in SOD CHLORIDE 0.9% 100 ML IVPB (12:42)
[2018-10-22] MEDS: OCTREOTIDE 500 MCG in SOD CHLORIDE 0.9% 49 ML IV (12:42)
[2018-10-22 13:02] LABS: ADD MAN DIFF? NO
[2018-10-22 13:11] LABS: ABNORMAL IP MESSAGE 1; BASOPHILS % 0.4 % (0.0-2.0); EOSINOPHILS # 0.1 10^3/ul (0.0-0.5); EOSINOPHILS % 0.7 % (0.0-7.0); HEMATOCRIT 31.3 % (37.0-47.0); HEMOGLOBIN 9.8 g/dl (12.0-16.0); LYMPHOCYTES # 1.3 10^3/ul (0.8-2.9); LYMPHOCYTES % 18.2 % (15.0-51.0); MEAN CORPUSCULAR HEMOGLOBIN 29.1 pg (29.0-33.0); MEAN CORPUSCULAR HGB CONC 31.3 g/dl (32.0-37.0); MEAN CORPUSCULAR VOLUME 92.9 fl (82.0-101.0); MEAN PLATELET VOLUME 11.7 fl (7.4-10.4); MONOCYTE # 0.9 10^3/ul (0.3-0.9); MONOCYTES % 12.3 % (0.0-11.0); NEUTROPHIL # 4.8 10^3/ul (1.6-7.5); NEUTROPHILS % 67.8 % (39.0-77.0); PLATELET COUNT 88 10^3/UL (140-415); POSITIVE DIFF @See below; RED BLOOD COUNT 3.37 10^6/ul (4.20-5.40); RED CELL DISTRIBUTION WIDTH 20.9 % (11.5-14.5)
[2018-10-22 13:11] LABS: WHITE BLOOD COUNT 7.1 10^3/ul (4.8-10.8)
[2018-10-22] MEDS: CEFTRIAXONE 1 GM/50 ML (PMX) 50 ML IVPB (13:18)
[2018-10-22] MEDS: morphine 4 MG/ML VIAL IV (13:18)
[2018-10-22 13:39] LABS: ALANINE AMINOTRANSFERASE 40 IU/L (13-69); ALBUMIN 2.9 g/dl (3.3-4.9); ALBUMIN/GLOBULIN RATIO 0.69; ALKALINE PHOSPHATASE 233 IU/L (42-121); ANION GAP 9 (5-13); ASPARTATE AMINO TRANSFERASE 88 IU/L (15-46); BILIRUBIN,INDIRECT 1.7 mg/dl (0-1.1); BILIRUBIN,TOTAL 1.7 mg/dl (0.2-1.3); BLOOD UREA NITROGEN 20 mg/dl (7-20); CARBON DIOXIDE 24 mmol/L (21-31); CHLORIDE 103 mmol/L (97-110); CREATININE 1.09 mg/dl (0.44-1.00); Estimated GFR 56 mL/min (>60); GLUCOSE 89 mg/dl (70-220); SODIUM 136 mmol/L (135-144); TOTAL PROTEIN 7.1 g/dl (6.1-8.1)
[2018-10-22 13:47] LABS: INR 1.55; PROTIME 18.7 Sec (11.9-14.9); PT RATIO 1.5
[2018-10-22 13:48] LABS: PARTIAL THROMBOPLASTIN TIME 36.4 Sec (23.0-35.0)
[2018-10-22 13:50] LABS: TROPONIN-I 0.019 ng/ml (0.000-0.120)
[2018-10-22 15:24] LABS: FLD MN% 93.7 %; FLD PMN% 6.3 %; FLD RBC 1000 /uL
[2018-10-22] MEDS ORDERED: ACETAMINOPHEN 325 MG TAB PO (15:30)
[2018-10-22 16:10] LABS: PATH REVIEW? YES
[2018-10-22 16:10] LABS: FLD TYPE ASCITES
[2018-10-22 16:11] LABS: FLD CLARITY CLOUDY; FLD COLOR YELLOW
[2018-10-22 16:12] LABS: FLD WBC 159 /cmm
[2018-10-22] MEDS: METOCLOPRAMIDE 10 MG INJ IV (16:59)
[2018-10-22] MEDS ORDERED: DEXTROSE 5%-0.45% NACL 1,000 ML IV (17:35)
[2018-10-22] MEDS ORDERED: PHYTONADIONE 10 MG/ML INJ IM (18:00)
[2018-10-22] MEDS ORDERED: ONDANSETRON 4 MG INJ IV (18:00)
[2018-10-22] MEDS ORDERED: NACL 0.9% 3 ML SYG IV (18:00)
[2018-10-22] MEDS ORDERED: morphine 2 MG INJ IV (18:00)
== END 2018-10-22 17:45 | disposition left against medical advice (07) ==
LOC: E/R 17:45
DX: K92.2 Gastrointestinal hemorrhage, unspecified (principal); D64.9 Anemia, unspecified
CPT/HCPCS: 36415; 80053; 84484; 85025; 85610; 85730; 86850; 86870; 86900; 86901; 87070; 87102; 87116; 89051; 93005; 96374; 96375; 99285-25

== ENCOUNTER 2018-12-23 14:27 | Observation (INO) | payer OTHER ==
[2018-12-23] MEDS: HYDROCODONE/APAP (10/325) TAB PO ×2 (15:37→15:43)
[2018-12-23] MEDS: morphine 10 MG INJ IM (16:11)
[2018-12-23] MEDS: PROMETHAZINE 25 MG TAB PO (16:12)
[2018-12-23 17:33] LABS: ADD MAN DIFF? NO
[2018-12-23 17:37] LABS: WHITE BLOOD COUNT 7.5 10^3/ul (4.8-10.8)
[2018-12-23 17:37] LABS: ABNORMAL IP MESSAGE 1; BASOPHIL # 0.1 10^3/ul (0.0-0.1); BASOPHILS % 0.8 % (0.0-2.0); EOSINOPHILS % 0.4 % (0.0-7.0); HEMATOCRIT 33.5 % (37.0-47.0); HEMOGLOBIN 10.6 g/dl (12.0-16.0); LYMPHOCYTES # 1.2 10^3/ul (0.8-2.9); MEAN CORPUSCULAR HEMOGLOBIN 31.6 pg (29.0-33.0); MEAN CORPUSCULAR HGB CONC 31.6 g/dl (32.0-37.0); MEAN PLATELET VOLUME 11.9 fl (7.4-10.4); MONOCYTE # 0.5 10^3/ul (0.3-0.9); MONOCYTES % 6.8 % (0.0-11.0); NEUTROPHIL # 5.6 10^3/ul (1.6-7.5); NEUTROPHILS % 75.6 % (39.0-77.0); PLATELET COUNT 90 10^3/UL (140-415); RED BLOOD COUNT 3.35 10^6/ul (4.20-5.40); RED CELL DISTRIBUTION WIDTH 20.9 % (11.5-14.5)
[2018-12-23 17:44] LABS: POSITIVE DIFF @See below
[2018-12-23 17:56] LABS: ALANINE AMINOTRANSFERASE 34 IU/L (13-69); ALBUMIN 3.2 g/dl (3.3-4.9); ALBUMIN/GLOBULIN RATIO 0.69; ALKALINE PHOSPHATASE 245 IU/L (42-121); ANION GAP 11 (5-13); ASPARTATE AMINO TRANSFERASE 115 IU/L (15-46); BILIRUBIN,INDIRECT 2.7 mg/dl (0-1.1); BILIRUBIN,TOTAL 2.7 mg/dl (0.2-1.3); BLOOD UREA NITROGEN 23 mg/dl (7-20); CALCIUM 8.5 mg/dl (8.4-10.2); CARBON DIOXIDE 22 mmol/L (21-31); CHLORIDE 103 mmol/L (97-110); CREATININE 0.92 mg/dl (0.44-1.00); Estimated GFR > 60 mL/min (>60); GLUCOSE 90 mg/dl (70-220); INR 1.31; POTASSIUM 4.3 mmol/L (3.5-5.1); PROTIME 16.4 Sec (11.9-14.9); PT RATIO 1.3; SODIUM 136 mmol/L (135-144); TOTAL PROTEIN 7.8 g/dl (6.1-8.1)
[2018-12-23 17:57] LABS: PARTIAL THROMBOPLASTIN TIME 39.4 Sec (23.0-35.0)
[2018-12-23] MEDS: LIDOCAINE 1% (MPF) 5 ML VIAL (18:46)
[2018-12-23] MEDS: morphine 4 MG/ML VIAL IV (21:24)
[2018-12-23] MEDS: DIPHENHYDRAMINE 50 MG INJ IV (23:30)
[2018-12-24] MEDS ORDERED: METOCLOPRAMIDE 10 MG INJ IV (03:00)
[2018-12-24] MEDS ORDERED: ACETAMINOPHEN 325 MG TAB PO (03:00)
[2018-12-24] MEDS: morphine 4 MG/ML VIAL IV ×4 (03:42→16:38)
[2018-12-24] MEDS: LACTULOSE 30ML CUP PO ×2 (05:42→16:26)
[2018-12-24] MEDS: LORAZEPAM 0.5 MG TAB PO ×2 (05:42→23:24)
[2018-12-24] MEDS: PANTOPRAZOLE (EC) 40 MG TAB PO (06:42)
[2018-12-24] MEDS: PENTOXIFYLLINE (SR) 400 MG TAB PO ×3 (07:35→17:34)
[2018-12-24] MEDS: GABAPENTIN 100 MG CAP PO ×3 (08:49→20:52)
[2018-12-24] MEDS: RIFAXIMIN 550 MG TAB PO ×2 (08:49→20:52)
[2018-12-24] MEDS: SPIRONOLACTONE 50 MG TAB PO (08:49)
[2018-12-24] MEDS: MULTIVITAMINS THERAPEUTIC TAB PO (08:49)
[2018-12-24] MEDS: PROPRANOLOL 10 MG TAB PO ×2 (08:55→20:52)
[2018-12-24] MEDS ORDERED: DAILY VITE PO (09:00)
[2018-12-24] MEDS: FUROSEMIDE 20 MG TAB PO (11:16)
[2018-12-24] MEDS: ALBUMIN HUMAN 25% 100 ML IV ×2 (12:00→13:00)
[2018-12-24] MEDS: DIPHENHYDRAMINE 25 MG CAP PO ×2 (12:15→19:05)
[2018-12-24] MEDS ORDERED: BISACODYL 10 MG SUPP PR (19:00)
[2018-12-24] MEDS: morphine 10 MG INJ IV (20:54)
[2018-12-24] MEDS: BISACODYL 10 MG SUPP PR (20:56)
[2018-12-25] MEDS: morphine 10 MG INJ IV ×3 (01:11→10:26)
[2018-12-25] MEDS: LACTULOSE 30ML CUP PO (02:13)
[2018-12-25] MEDS: DIPHENHYDRAMINE 25 MG CAP PO (02:14)
[2018-12-25 06:10] LABS: ADD MAN DIFF? NO
[2018-12-25 06:15] LABS: ABNORMAL IP MESSAGE 1; BASOPHILS % 0.6 % (0.0-2.0); EOSINOPHILS # 0.1 10^3/ul (0.0-0.5); EOSINOPHILS % 2.1 % (0.0-7.0); HEMATOCRIT 31.9 % (37.0-47.0); HEMOGLOBIN 10.1 g/dl (12.0-16.0); LYMPHOCYTES # 0.9 10^3/ul (0.8-2.9); LYMPHOCYTES % 12.6 % (15.0-51.0); MEAN CORPUSCULAR HGB CONC 31.7 g/dl (32.0-37.0); MEAN CORPUSCULAR VOLUME 100.9 fl (82.0-101.0); MEAN PLATELET VOLUME 12.2 fl (7.4-10.4); MONOCYTE # 0.5 10^3/ul (0.3-0.9); NEUTROPHIL # 5.2 10^3/ul (1.6-7.5); NEUTROPHILS % 76.1 % (39.0-77.0); PLATELET COUNT 78 10^3/UL (140-415); RED BLOOD COUNT 3.16 10^6/ul (4.20-5.40); RED CELL DISTRIBUTION WIDTH 19.9 % (11.5-14.5)
[2018-12-25 06:15] LABS: WHITE BLOOD COUNT 6.8 10^3/ul (4.8-10.8)
[2018-12-25 06:24] LABS: POSITIVE DIFF @See below
[2018-12-25] MEDS: PANTOPRAZOLE (EC) 40 MG TAB PO (06:32)
[2018-12-25 07:00] LABS: ALANINE AMINOTRANSFERASE 31 IU/L (13-69); ALBUMIN 2.6 g/dl (3.3-4.9); ALBUMIN/GLOBULIN RATIO 0.65; ALKALINE PHOSPHATASE 160 IU/L (42-121); ANION GAP 4 (5-13); ASPARTATE AMINO TRANSFERASE 104 IU/L (15-46); BILIRUBIN,INDIRECT 2.9 mg/dl (0-1.1); BILIRUBIN,TOTAL 2.9 mg/dl (0.2-1.3); BLOOD UREA NITROGEN 19 mg/dl (7-20); CALCIUM 8.6 mg/dl (8.4-10.2); CARBON DIOXIDE 26 mmol/L (21-31); CHLORIDE 103 mmol/L (97-110); CREATININE 0.81 mg/dl (0.44-1.00); Estimated GFR > 60 mL/min (>60); GLUCOSE 112 mg/dl (70-220); POTASSIUM 4.3 mmol/L (3.5-5.1); SODIUM 133 mmol/L (135-144); TOTAL PROTEIN 6.6 g/dl (6.1-8.1)
[2018-12-25] MEDS: LORAZEPAM 0.5 MG TAB PO (07:47)
[2018-12-25] MEDS: RIFAXIMIN 550 MG TAB PO (09:01)
[2018-12-25] MEDS: MULTIVITAMINS THERAPEUTIC TAB PO (09:01)
[2018-12-25] MEDS: GABAPENTIN 100 MG CAP PO (09:01)
[2018-12-25] MEDS: SPIRONOLACTONE 50 MG TAB PO (09:01)
[2018-12-25] MEDS: FUROSEMIDE 20 MG TAB PO (09:02)
[2018-12-25] MEDS: PENTOXIFYLLINE (SR) 400 MG TAB PO (09:02)
== END 2018-12-25 12:15 | disposition home or self-care (01) ==
LOC: E/R 14:27 → PP2 12-24 02:47
DX: K70.31 Alcoholic cirrhosis of liver with ascites (principal)
CPT/HCPCS: 49083; 74176; 76705; 80053; 85025; 85610; 85730; 87081; 93005; 96372; 96374; 96375; 99285-25; G0378

== ENCOUNTER 2018-12-25 19:18 | Observation (INO) | payer OTHER ==
[2018-12-25] MEDS: SOD CHLORIDE 0.9% 500 ML IV (21:19)
[2018-12-25] MEDS: morphine 4 MG/ML VIAL IV (21:19)
[2018-12-25 22:06] LABS: ADD MAN DIFF? NO
[2018-12-25 22:10] LABS: ABNORMAL IP MESSAGE 1; BASOPHILS % 0.4 % (0.0-2.0); EOSINOPHILS # 0.1 10^3/ul (0.0-0.5); EOSINOPHILS % 0.8 % (0.0-7.0); HEMATOCRIT 27.6 % (37.0-47.0); HEMOGLOBIN 8.9 g/dl (12.0-16.0); LYMPHOCYTES # 0.8 10^3/ul (0.8-2.9); LYMPHOCYTES % 11.3 % (15.0-51.0); MEAN CORPUSCULAR HEMOGLOBIN 33.2 pg (29.0-33.0); MEAN CORPUSCULAR HGB CONC 32.2 g/dl (32.0-37.0); MEAN PLATELET VOLUME 13.1 fl (7.4-10.4); MONOCYTE # 0.5 10^3/ul (0.3-0.9); MONOCYTES % 6.9 % (0.0-11.0); NEUTROPHIL # 5.7 10^3/ul (1.6-7.5); NUCLEATED RED BLOOD CELLS% 0.4 /100WBC (0.0-0.0); RED BLOOD COUNT 2.68 10^6/ul (4.20-5.40); RED CELL DISTRIBUTION WIDTH 19.9 % (11.5-14.5)
[2018-12-25 22:10] LABS: WHITE BLOOD COUNT 7.2 10^3/ul (4.8-10.8)
[2018-12-25 22:19] LABS: PLATELET COUNT 105 10^3/UL (140-415); POSITIVE DIFF @See below
[2018-12-25 22:28] LABS: ALANINE AMINOTRANSFERASE 24 IU/L (13-69); ALBUMIN 2.5 g/dl (3.3-4.9); ALBUMIN/GLOBULIN RATIO 0.65; ALKALINE PHOSPHATASE 154 IU/L (42-121); ANION GAP 7 (5-13); ASPARTATE AMINO TRANSFERASE 106 IU/L (15-46); BILIRUBIN,INDIRECT 1.8 mg/dl (0-1.1); BILIRUBIN,TOTAL 1.8 mg/dl (0.2-1.3); BLOOD UREA NITROGEN 15 mg/dl (7-20); CALCIUM 7.1 mg/dl (8.4-10.2); CARBON DIOXIDE 20 mmol/L (21-31); CHLORIDE 106 mmol/L (97-110); CREATININE 0.78 mg/dl (0.44-1.00); Estimated GFR > 60 mL/min (>60); GLUCOSE 89 mg/dl (70-220); LIPASE 14 U/L (23-300); POTASSIUM 4.5 mmol/L (3.5-5.1); SODIUM 133 mmol/L (135-144); TOTAL PROTEIN 6.3 g/dl (6.1-8.1)
[2018-12-25 22:29] LABS: PROTIME 19.1 Sec (11.9-14.9); PT RATIO 1.5
[2018-12-25 22:30] LABS: PARTIAL THROMBOPLASTIN TIME 38.3 Sec (23.0-35.0)
[2018-12-26] MEDS ORDERED: ACETAMINOPHEN 325 MG TAB PO ×2 (00:30→01:30)
[2018-12-26] MEDS ORDERED: METOCLOPRAMIDE 10 MG INJ IV (01:30)
[2018-12-26] MEDS ORDERED: ALBUMIN HUMAN 25% 100 ML IV (02:00)
[2018-12-26] MEDS: morphine 4 MG/ML VIAL IV ×2 (02:31→06:39)
[2018-12-26] MEDS: DIPHENHYDRAMINE 25 MG CAP PO ×2 (02:36→09:06)
[2018-12-26] MEDS: LORAZEPAM 0.5 MG TAB PO (03:55)
[2018-12-26] MEDS ORDERED: PANTOPRAZOLE (EC) 40 MG TAB PO (05:57)
[2018-12-26] MEDS: PANTOPRAZOLE (EC) 40 MG TAB PO (06:00)
[2018-12-26] MEDS ORDERED: DAILY VITE PO (09:00)
[2018-12-26] MEDS: GABAPENTIN 100 MG CAP PO (09:06)
[2018-12-26] MEDS: RIFAXIMIN 550 MG TAB PO (09:06)
[2018-12-26] MEDS: PENTOXIFYLLINE (SR) 400 MG TAB PO (09:06)
[2018-12-26] MEDS: SPIRONOLACTONE 50 MG TAB PO (09:06)
[2018-12-26] MEDS: MULTIVITAMINS THERAPEUTIC TAB PO (09:06)
[2018-12-26] MEDS: LACTULOSE 30ML CUP PO (09:06)
[2018-12-26] MEDS: FUROSEMIDE 20 MG TAB PO (09:06)
[2018-12-26] MEDS: PROPRANOLOL 10 MG TAB PO (09:07)
[2018-12-26] MEDS: [UNRECOGNIZED DRUG - OTHER] XX (10:00)
== END 2018-12-26 14:00 | disposition home health service (06) ==
LOC: 5EC 12-26 00:11 → E/R 19:18
DX: R18.8 Other ascites (principal); K72.90 Hepatic failure, unspecified without coma; F10.10 Alcohol abuse, uncomplicated
CPT/HCPCS: 36415; 76705; 80053; 83690; 85025; 85610; 85730; 96374; 99217; 99285-25